=== PATIENT | female | born 1955 | race African-American/Black ===

== ENCOUNTER 2018-04-28 22:55 | Emergency (ER) | payer MEDICARE ==
[~2018-04-28] VITALS: Ht 175.3 cm; Wt 100.0 kg
[2018-04-29] MEDS ORDERED: CARVEDILOL 25MG TABLET PO ONE (08:30)
[2018-04-29] MEDS ORDERED: ASPIRIN 81MG TABLET PO ONE (08:30)
[2018-04-29 18:22] VITALS: BP 161/53
== END 2018-04-29 16:25 | disposition home or self-care (01) ==
LOC: ER 23:07
DX: M79.10 Myalgia, unspecified site (principal); E78.00 Pure hypercholesterolemia, unspecified; I10 Essential (primary) hypertension; E11.9 Type 2 diabetes mellitus without complications; F31.9 Bipolar disorder, unspecified; I25.10 Atherosclerotic heart disease of native coronary artery without angina pectoris; Z59.0 Homelessness; Z98.890 Other specified postprocedural states; Z98.62 Peripheral vascular angioplasty status
CPT/HCPCS: 99283